=== PATIENT | male | born 1955 | race Caucasian/White ===

== ENCOUNTER 2025-03-10 10:32 | Day surgery (SDC) | payer BC ==
[~2025-03-10 10:32] MED LIST: Metoclopramide 10 MG/2 ML SDV IV PRN
[2025-03-10] MEDS: Sodium Chloride 0.9% 1,000 ML IV SCH (11:11)
[2025-03-10] MEDS ORDERED: Propofol 500 MG/50 ML SDV ONE (11:30)
[2025-03-10 12:21] VITALS: BP 116/85; PULSE 75
== END 2025-03-10 12:45 | disposition home or self-care (01) ==
LOC: LB.SDS 10:32
PROVIDERS: ATTEND Surgery
DX: Z12.11 Encounter for screening for malignant neoplasm of colon (principal); I12.9 Hypertensive chronic kidney disease with stage 1 through stage 4 chronic kidney disease, or unspecified chronic kidney disease; N18.30 Chronic kidney disease, stage 3 unspecified; E78.5 Hyperlipidemia, unspecified; Z79.899 Other long term (current) drug therapy
CPT/HCPCS: 88305; J2704; J7030